=== PATIENT | male | born 1970 | race Caucasian/White ===

== ENCOUNTER 2016-04-13 11:20 | Day surgery (SDC) | payer OTHER ==
[~2016-04-13 11:20] MED LIST: CLINDAMYCIN 600 MG/DEXTROSE 50 ML IV ONE; DEXAMETHASONE 10 MG/ML VIAL IVP ONE; OXYMETAZOLINE 30 ML NASAL SPRAY EACHNARE ONE
[2016-04-13] MEDS ORDERED: LIDOCAINE 1% 5 ML SDV ONE (11:36)
[2016-04-13] MEDS ORDERED: DEXAMETHASONE 10 MG/ML VIAL ONE (11:57)
[2016-04-13] MEDS ORDERED: OXYMETAZOLINE 30 ML NASAL SPRAY ONE (11:58)
[2016-04-13] MEDS ORDERED: CLINDAMYCIN 600 MG/DEXTROSE/50 ML BAG IV ONE (11:58)
[2016-04-13] MEDS ORDERED: LR 1,000 ML IV ONE (12:10)
[2016-04-13] MEDS ORDERED: LIDOCAINE 1% 5 ML SDV ID PRN (12:10)
[2016-04-13] MEDS ORDERED: fentaNYL 100 MCG/2 ML INJ ONE ×3 (12:26→14:53)
[2016-04-13] MEDS ORDERED: ROCURONIUM 50 MG/5 ML VIAL ONE (12:26)
[2016-04-13] MEDS ORDERED: PROPOFOL 200 MG/20 ML VIAL ONE (12:26)
[2016-04-13] MEDS ORDERED: WATER FOR INJ.,BACTERIOSTATIC 30 ML MDV ONE (12:39)
[2016-04-13] MEDS ORDERED: DEXAMETHASONE 4 MG/ML VIAL ONE (12:39)
[2016-04-13] MEDS ORDERED: LIDO/EPI 1% **Not for Epidural 20 ML MDV ONE (12:40)
[2016-04-13] MEDS ORDERED: MIDAZOLAM 2 MG/2 ML VIAL ONE (12:56)
[2016-04-13] MEDS ORDERED: SCOPOLAMINE HYDROBROMIDE 1.5 MG PATCH TD ONE (12:56)
[2016-04-13] MEDS ORDERED: TRIAMCINOLONE ACETONIDE 40 MG/ML VIAL ONE (13:10)
[2016-04-13] MEDS ORDERED: EPINEPHrine 30 MG/30 ML MDV ONE ×2 (13:45→13:49)
[2016-04-13] MEDS ORDERED: METHYLENE BLUE 1% 100 MG/10 ML VIAL ONE (13:45)
[2016-04-13] MEDS ORDERED: ONDANSETRON 4 MG/2 ML VIAL ONE (14:30)
[2016-04-13] MEDS ORDERED: SUGAMMADEX SODIUM 200 MG/2 ML VIAL IVP ONE (14:30)
[2016-04-13] MEDS ORDERED: HYDROmorphONE/DILAUDID 1 MG/ML SYR ONE (15:26)
[2016-04-13] MEDS ORDERED: oxyCODONE IR 5 MG TAB ONE (16:23)
--- NOTE | 2016-04-14 13:45 | GOP ---
DATE OF OPERATION: 04/13/2016 SURGEON: Dina Reynolds MD ANESTHESIA: General endotracheal. PREOPERATIVE DIAGNOSIS: 1. Chronic rhinosinusitis. 2. Nasal polyposis. 3. Headaches. 4. Nasal obstruction. POSTOPERATIVE DIAGNOSIS: 1. Chronic rhinosinusitis. 2. Nasal polyposis. 3. Headaches. 4. Nasal obstruction. PROCEDURE PERFORMED: 1. Bilateral maxillary antrostomy with tissue removal. 2. Bilateral total ethmoidectomy, revision. 3. Bilateral sphenoidotomy. 4. Extensive nasal polypectomy. 5. Right middle turbinate resection. 6. Use of 3-dimensional navigation system. FINDINGS: 1. Right nasal passageway with nasal polyps filling the anterior and posterior ethmoid sp aces. 2. Right maxillary antrostomy that was done prior was completely scarred over. 3. Lateralization of the middle turbinate with attenuation of the middle turbinate as well. 4. Relatively open left middle meatus with polypoid degenerative change throughout the anterior and posterior ethmoids. 5. Contracted, but still patent, left maxillary sinus with purulent material within the sinus itself . 6. Relatively clean sphenoid sinuses. SPECIMENS: Bilateral sinus contents. ESTIMATED BLOOD LOSS: 100 cc. INDICATIONS: The patient is a 45-year-old gentleman who has a long-standing history of chronic rhin osinusitis with nasal polyposis. He has had 2 prior sinus surgeries, and prior to this, had been rel atively noncompliant with a topical regimen, as he reportedly had never been told the importance of nasal steroid use. Last surgery was approximately 10 years ago. He has, since then, had progressive nasal obstruction as well as facial pain and headache, worse on the right side. He has had prior wanda rology workup to discuss headaches, and the conclusion was that the majority of the problem was the sinuses. He was initially trialed on oral antibiotics and oral steroids with only partial and tempor liberty improvement. The risks, benefits, and alternatives of revision surgery were discussed with him, and it was decided to proceed forward. DESCRIPTION OF PROCEDURE: The patient was meet in preoperative holding. Informed consent confirmed. The patient was brought to the operating room. He underwent induction of general anesthesia with pl acement of endotracheal tube without difficulty. He was rotated 90 degrees to the operating surgeon. The [employer] 3-dimensional navigation system was then registered and confirmed to be accurate. He was then widely prepped and draped in the standard fashion. 0-degree rigid endoscope was used to exa mine each nasal passageway. The above findings were noted. The right middle turbinate and nasal poly ps were injected with 2-1/2 cc of 1% lidocaine with 1:100,000 epinephrine, and this was repeated on the left side as well. I began on the right side. The nasal polyps within the middle meatus were natasha ulked. This was using the navigation microdebrider, and taken to the lamina papyracea as well as to the skull base anteriorly and then to the face of the sphenoid posteriorly. The middle turbinate its elf was quite attenuated and had a tendency to lateralize. I, therefore, opted to remove it. This wa s taken up to the level of the skull base superiorly into its lateral attachment posteriorly. Next, using the 3-dimensional navigation system, a 30-degree rigid scope as well as the curved suction wit h the navigation system, I was able to localize the maxillary sinus. There was some polypoid tissue within it, and this was debrided. The maxillary sinus was then widely opened using back-biting and s traight Sherwin-Cut forceps as well as the microdebrider. Next, using the navigation suction, I was able to localize the sphenoid opening, and using a mushroom punch, this was opened as well. The sphenoid sinus was relatively clean. The frontal sinus recess was debulked of some polyps, however, no ____ procedure was performed. I turned my attention to the left side. The middle turbinate was angie rdier on this side and had a tendency to be medialized, so I left this alone. Anterior ethmoidectomy was then performed using the navigation microdebrider to the level of the skull base as well as spa ce of the sphenoid inferiorly and posteriorly. The maxillary antrostomy that was previously created was still patent, although this was quite small. This was generously opened again with downbiting an d backbiting forceps. The microdebrider was then utilized to open this quite widely. Again, the diamond gation suction was then utilized to locate the sphenoid os, and this was also widened using the mush room punch. This sphenoid sinus was also relatively clean. The frontal recess on this side was relat ively clean. At this point, the inferior turbinate was lateralized and outfractured bilaterally with a [place] elevator, and the nose suctioned free of any excess blood. Kenalog was mixed into the Dave hanks foam along with sterile water and then placed as a hemostatic and anti-inflammatory agent in both sinus cavities. At the end of this procedure, all sponge, needle, and instrument counts correct. I personally performed all portions of the procedure. FLUIDS: 1 L of crystalloid. /[id number]/MODL
== END 2016-04-13 16:54 | disposition home or self-care (01) ==
LOC: FSGY 11:20
PROVIDERS: ATTEND Otolaryngology
DX: J33.9 Nasal polyp, unspecified (principal); J32.0 Chronic maxillary sinusitis; J32.2 Chronic ethmoidal sinusitis; I10 Essential (primary) hypertension; Z88.0 Allergy status to penicillin; R51 Headache
CPT/HCPCS: J1100; J1170; J2250; J2405; J2704; J3010; J3301; Q9968